=== PATIENT | female | born 1955 | race Caucasian/White ===

== ENCOUNTER → 2019-11-03 | Outpatient (CLI) | payer MEDICARE | LOC: COL.ER 11:43 | DX: Z20.828 Contact with and (suspected) exposure to other viral communicable diseases (principal) ==

== ENCOUNTER → 2020-01-03 | Outpatient (CLI) | payer MEDICARE, BC | LOC: COL.RAD 13:18 | DX: R59.1 Generalized enlarged lymph nodes (principal) ==

== ENCOUNTER → 2020-02-14 | Outpatient (CLI) | payer MEDICARE, BC | LOC: MC.RAD 01-29 11:00 | DX: Z12.31 Encounter for screening mammogram for malignant neoplasm of breast (principal) ==

== ENCOUNTER → 2021-05-15 | Outpatient (CLI) | payer MEDICARE, BC | LOC: MC.RAD 10:15 | DX: Z12.31 Encounter for screening mammogram for malignant neoplasm of breast (principal) ==

== ENCOUNTER 2021-06-11 13:30 | Outpatient (RCR) | payer MEDICARE, BC | END 2021-06-12 | disposition home or self-care (01) | LOC: WSPT | DX: M16.12 Unilateral primary osteoarthritis, left hip (principal) ==

== ENCOUNTER 2021-07-10 14:15 | Outpatient (RCR) | payer MEDICARE, BC | END 2021-07-13 | disposition home or self-care (01) | LOC: WSPT | DX: M16.12 Unilateral primary osteoarthritis, left hip (principal) ==

== ENCOUNTER 2021-08-06 10:30 | Outpatient (RCR) | payer MEDICARE, BC | END 2021-08-10 | disposition home or self-care (01) | LOC: WSPT | DX: M17.12 Unilateral primary osteoarthritis, left knee (principal) ==

== ENCOUNTER 2021-09-03 11:15 | Outpatient (RCR) | payer MEDICARE, BC | END 2021-09-10 | disposition still patient (30) | LOC: WSPT | DX: M16.12 Unilateral primary osteoarthritis, left hip (principal) ==

== ENCOUNTER 2021-10-07 09:00 | Outpatient (RCR) | payer MEDICARE, BC | END 2021-10-10 | disposition home or self-care (01) | LOC: WSPT | DX: M16.12 Unilateral primary osteoarthritis, left hip (principal) ==

== ENCOUNTER 2021-10-14 10:30 | Outpatient (RCR) | payer MEDICARE, BC | END 2021-11-10 | disposition home or self-care (01) | LOC: PT.GENESIS | DX: M16.12 Unilateral primary osteoarthritis, left hip (principal) ==

== ENCOUNTER 2021-12-08 14:15 | Outpatient (RCR) | payer MEDICARE, BC | END 2021-12-10 | disposition still patient (30) | LOC: WSPT | DX: M16.12 Unilateral primary osteoarthritis, left hip (principal) ==

== ENCOUNTER 2022-01-08 11:15 | Outpatient (RCR) | payer MEDICARE, BC | END 2022-01-10 | disposition home or self-care (01) | LOC: WSC | DX: M16.12 Unilateral primary osteoarthritis, left hip (principal) ==

== ENCOUNTER 2022-02-09 11:15 | Outpatient (RCR) | payer MEDICARE, BC | END 2022-02-10 | disposition home or self-care (01) | LOC: WSPT | DX: M16.12 Unilateral primary osteoarthritis, left hip (principal) ==

== ENCOUNTER 2022-09-02 11:08 | Outpatient (RCR) | payer MEDICARE, BC | END 2022-09-10 | disposition home or self-care (01) | LOC: WSPT | DX: M16.12 Unilateral primary osteoarthritis, left hip (principal) ==

== ENCOUNTER 2022-09-20 11:15 | Outpatient (RCR) | payer MEDICARE, BC | END 2022-10-10 | disposition home or self-care (01) | LOC: WSPT | DX: M16.12 Unilateral primary osteoarthritis, left hip (principal) ==

== ENCOUNTER → 2022-10-19 | Outpatient (CLI) | payer MEDICARE, BC | LOC: COL.RAD 15:28 | DX: R74.8 Abnormal levels of other serum enzymes (principal) ==

== ENCOUNTER 2023-03-09 12:45 | Outpatient (RCR) | payer MEDICARE, BC | END 2023-03-12 | disposition home or self-care (01) | LOC: WSPT | DX: Z47.1 Aftercare following joint replacement surgery (principal); K75.4 Autoimmune hepatitis; L29.9 Pruritus, unspecified; Z96.642 Presence of left artificial hip joint ==

== ENCOUNTER → 2023-06-23 | Outpatient (CLI) | payer MEDICARE, BC | LOC: MC.RAD 10:55 | DX: Z12.31 Encounter for screening mammogram for malignant neoplasm of breast (principal) ==